=== PATIENT | female | born 1970 | race Caucasian/White ===

== ENCOUNTER → 2024-12-10 | Outpatient (CLI) | payer OTHER, SELFPAY ==
--- NOTE | 2024-12-10 11:45 | XR_ITS ---
Examination: Abdomen sonogram, complete Date and time of exam: December 10, 2024 1145 hours INDICATIONS: Elevated liver function tests on laboratory examination one month ago. Technique: Multiple real-time grayscale transabdominal sonographic images of the abdomen have been obtained. Findings: Normal gallbladder Normal common bile duct 0.3 cm Pancreatic head 2.0 cm Aorta not enlarged Liver 13.5 cm fatty infiltration Normal hepatopedal portal venous oh Patent IVC Right kidney 9.0 cm cortex 1.1 cm Left kidney 12.0 cm cortex 1.9 cm Mild left hydronephrosis Mild renal parenchymal scar formation Spleen 8.2 cm IMPRESSION: Normal gallbladder Fatty liver Mild left hydronephrosis, consider CT scan abdomen pelvis without contrast follow-up to assess etiology of the mild left hydronephrosis
--- NOTE | 2024-12-10 12:20 | XR_ITS ---
Examination: Bone densitometry Date and time of exam:December 10, 2024 1236 hours INDICATIONS: Menopause age 53 vitamin D one month Technique: Lumbar spine and hip total bone mineralization values of an calculated. Peak reference and age match control results have been displayed. Findings: Lumbar spine total bone mineralization is1.110 gm/cm2. This is 0.6 standard deviations above peak reference. This is 1.5 standard deviations above age-matched controls. Hip total bone mineralization is 1.018 gm/cm2 This is 0.6 standard deviations above peak reference. This is 1.2 standard deviations above age-matched controls Impression: There is normal mineralization based on lumbar spine measurements. There is normal mineralization based on hip measurements
== END | disposition home or self-care (01) ==
PROVIDERS: PCP Family Medicine
DX: K76.0 Fatty (change of) liver, not elsewhere classified (principal); N13.30 Unspecified hydronephrosis; Z78.0 Asymptomatic menopausal state
CPT/HCPCS: 76700; 77080

== ENCOUNTER → 2025-06-05 | Outpatient (CLI) | payer OTHER, SELFPAY ==
--- NOTE | 2025-06-05 13:30 | XR_ITS ---
Examination: Screening digital mammography, bilateral Computer aided detection 3-D breast Tomosynthesis, bilateral Date and time of exam: June 05, 2025 1346 hours, compared to mammograms dating to November 28, 2019 Indication: Screening Technique: Nonmagnified MLO, CC views of the breasts to been obtained, reconstructed from 3-D Tomosynthesis images. R2 computer aided detection program utilized for evaluation of suspicious masses and/or abnormal calcifications. 3-D Tomosynthesis images obtained. Findings: Scattered areas of fibroglandular density. Benign calcifications. No interval suspicious masses Impression: BI-RADS category II: Benign Findings. Recommend 1 year follow-up mammogram.
== END | disposition home or self-care (01) ==
PROVIDERS: PCP Family Medicine; Referring Provider Nurse Practitioner Family; Visit Provider Nurse Practitioner Family
DX: Z12.31 Encounter for screening mammogram for malignant neoplasm of breast (principal); R92.323 Mammographic fibroglandular density, bilateral breasts; R92.1 Mammographic calcification found on diagnostic imaging of breast
CPT/HCPCS: 77063; 77067